=== PATIENT | female | born 1980 | race Caucasian/White ===

== ENCOUNTER 2018-01-17 19:01 | Emergency (ER) | payer MEDICAID ==
[~2018-01-17] VITALS: Ht 160 cm; Wt 72.6 kg
[2018-01-17 20:06] VITALS: Ht 160 cm; Wt 72.6 kg
[2018-01-17 23:25] VITALS: BP 104/66
== END 2018-01-17 23:25 | disposition home or self-care (01) ==
LOC: ED 19:01
DX: H10.31 Unspecified acute conjunctivitis, right eye (principal); H00.012 Hordeolum externum right lower eyelid

== ENCOUNTER 2018-03-16 06:41 | Emergency (ER) | payer OTHER ==
[~2018-03-16] VITALS: Ht 160 cm; Wt 72.6 kg
[2018-03-16 06:48] VITALS: Ht 160 cm; Wt 72.6 kg
[2018-03-16 07:36] VITALS: BP 129/72
== END 2018-03-16 07:36 | disposition home or self-care (01) ==
LOC: ED 06:41
DX: M26.602 Left temporomandibular joint disorder, unspecified (principal)
CPT/HCPCS: J1100; J1885

== ENCOUNTER 2019-03-15 19:50 | Inpatient (IN) | payer OTHER ==
[~2019-03-15] VITALS: Ht 160 cm; Wt 81.9 kg
[2019-03-15 20:02] VITALS: Ht 160 cm; Wt 81.9 kg
--- NOTE | 2019-03-15 20:17 | NUR ---
PT PRESENT TO THE ED WITH C/O LOWER QUADRANT ABD PAIN THAT BEGAN TODAY AT 4 AM. PT STS SHE HAD A 4 WEEKS AGO. HER NURSE PRACTITIONER PRESCRIBED HER KEFLEX FOR POSSIBLE INFECTION D/T HER STERI STRIPS NOT BEING REMOVED. C/O HAVING PERKINS/CHILLS/ABD PAIN. PT DESCRIBES ABD PAIN A COMBINATION OF CRAMPING, ACHING, AND SHOOTING PAIN. STS SHE TOOK IBUPROFEN AND 500 MG OF TYLENOL AT HOME. DENIES ANY N/V
--- NOTE | 2019-03-15 20:41 | NUR ---
DR. BURNETTE AT BEDSIDE FOR MSE
--- NOTE | 2019-03-15 20:55 | NUR ---
MATH AND PHYSICS INSTRUCTOR AT BEDSIDE FOR LAB DRAW
[2019-03-15 21:03] LABS: PLATELET COUNT 327 x10^3mcL (130-400)
[2019-03-15 21:05] LABS: CALCIUM 8.7 mg/dL (8.5-10.1); CARBON DIOXIDE 27.8 mmol/L (21-32); CHLORIDE SERUM 102 mmol/L (98-107); CREATININE SERUM 0.7 mg/dL (0.6-1.0); GFR1 > 60 mL/min; GLUCOSE SERUM 104 mg/dL (74-106); POTASSIUM SERUM 3.3 mmol/L (3.5-5.1); SODIUM SERUM 136 mmol/L (136-145)
[2019-03-15 21:06] LABS: RED CELL DISTRIBUTION WIDTH 15.7 % (11.5-14.5)
[2019-03-15 21:10] LABS: microscopic required? YES; urine erythrocyte 2+ (NEGATIVE)
[2019-03-15 21:19] LABS: ALKALINE PHOSPHATASE 85 U/L (46-116); ALT/SGPT 23 U/L (14-59); AST/SGOT 14 U/L (15-37); BILIRUBIN TOTAL 0.2 mg/dL (0.20-1.00); LIPASE 141 IU/L (73-393); TOTAL PROTEIN, SERUM 7.7 g/dL (6.4-8.2)
[2019-03-15 21:20] LABS: ALBUMIN 3.2 g/dL (3.4-5.0)
[2019-03-15 21:30] LABS: BAND NEUTROPHIL 3 % (0-10); BASOPHIL 0 % (0-2); MONOCYTE 2 % (0-7); SEGMENTED NEUTROPHILS 87 % (37-75); rbc morphology (normal/abnorm) ABNORMAL (NORMAL)
--- NOTE | 2019-03-15 21:34 | NUR ---
DR. 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
--- NOTE | 2019-03-15 21:42 | NUR ---
PT IS SHIVERING/DIAPHORETIC. PT'S ORAL TEMP 103.2. DR. BURNETTE MADE AWARE
--- NOTE | 2019-03-15 21:51 | NUR ---
PT TAKEN TO ULTRASOUND VIA WHEELCHAIR
--- NOTE | 2019-03-15 22:19 | NUR ---
NURSE CONSULTANT AT BEDSIDE FOR BLOOD CULTURE LAB DRAW
--- NOTE | 2019-03-15 22:50 | NUR ---
DR. BURNETTE AT BEDSIDE UPDATING PT ON ADMISSION
--- NOTE | 2019-03-15 23:25 | NUR ---
X-RAY TECH AT BEDSIDE
--- NOTE | 2019-03-15 23:33 | NUR ---
REPORT GIVEN TO CADENCE SINCLAIR FOR CONTINUITY OF CARE. ALL QUESTIONS/CONCERNS ADDRESSED AT THIS TIME
--- NOTE | 2019-03-15 23:45 | NUR ---
PT TRANSFERRED AT THIS TIME ACCOMPANIED BY YESICA SINCLAIR AND EMT. PT IS A/OX4. BREATHING IS E/U ON RA. LAC IV REMAINS IN PLACE WITH NO S/S OF INFILTRATION NOTED. GENTAMICIN ABX TRANSFERED WITH THE PT. NO S/S OF ACUTE DISTRESS NOTED. CADENCE SINCLAIR TO ASSUME CARE.
[2019-03-16] VITALS (8 sets, daily range): BP systolic 97–126; BP diastolic 42–60
--- NOTE | 2019-03-16 00:09 | NUR ---
RECEIVED PT FROM DOTTIE WALTERS. PT A/OX4. DENIES PAIN. DENIES SOB ON RA. IV PATENT. ASSISTED PATIENT WITH SETUP OF BREAST PUMP. ORIENTED PT TO ROOM AND SURROUNDINGS. CALL LIGHT WITHIN REACH, BED IN LOW POSITION. WILL CONTINUE TO MONITOR.
--- NOTE | 2019-03-16 00:09 | NUR ---
RECEIVED PT FROM ED VIA JENNIFER. ORIENTED PT TO ROOM AND SURROUNDINGS. IV NOTED TO JAMAL PATENT AND INTACT. TELE 9 PLACED ON PT READING STA. INSTRUCTED PT ON THE USE OF CALL LIGHT FOR ASSISTANCE. ENDORSED PT TO PRIMARY NURSE CADENCE
[2019-03-16 00:11] LABS: MAGNESIUM 1.5 mg/dL (1.8-2.4)
[2019-03-16 00:14] LABS: CHOLESTEROL/HDL RATIO 3.2; FREE T4 0.68 ng/dL (0.76-1.46); FREE THYROXINE INDEX 1.5 ug/dL (1.4-4.5); T3 TOTAL 1.21 ng/mL
[2019-03-16 00:22] LABS: AMPHETAMINE QUAL UR NONE DETECTED (See below)
[2019-03-16 06:11] LABS: PLATELET COUNT 284 x10^3mcL (130-400)
[2019-03-16 06:35] LABS: BASOPHIL % 0 % (0-2); RED CELL DISTRIBUTION WIDTH 15.4 % (11.5-14.5)
[2019-03-16 06:42] LABS: CARBON DIOXIDE 23.2 mmol/L (21-32); CHLORIDE SERUM 106 mmol/L (98-107); CREATININE SERUM 0.6 mg/dL (0.6-1.0); GFR1 > 60 mL/min; GLUCOSE SERUM 109 mg/dL (74-106); MAGNESIUM 2.3 mg/dL (1.8-2.4); PHOSPHOROUS 1.8 mg/dL (2.5-4.9); POTASSIUM SERUM 3.5 mmol/L (3.5-5.1); SODIUM SERUM 140 mmol/L (136-145)
--- NOTE | 2019-03-16 07:08 | NUR ---
RECEIVED REPORT FROM CADENCE SINCLAIR. PT RESTING COMFORTABLY IN BED. IV TO RAC IS PATENT AND INFSING NS @ 120 ML/HR. NO REDNESS OR PAIN. TELE # [address] PT DENIES CHEST PAIN. PT ON ROOM AIR. NO C/O SOB AND NO DISTRESS NOTED. ALL QUESTIONS AND CONCERNS ADDRESSED.
--- NOTE | 2019-03-16 07:48 | NUR ---
DR ALTMAN IN TO SEE AND ASSESS PATIENT. DISCUSSED HISTORY OF PRESENT ILLNESS, DATE OF , AND FOLLOW UP WITH HIM OUTPATIENT UPON DISCHARGE. DR ALTMAN ORDERED TO ADD AMPCILLIN TO GENTAMYCIN AND CLINDAMYCIN AND RECHECK CBC TONIGHT AT 1800. POSSIBLE DISCHARGE TOMORROW. PT VERBALIZED UNDERSTANDING AND ALL QUESTIONS AND CONCERNS WERE ADDRESSED.
--- NOTE | 2019-03-16 09:09 | NUR ---
EVALUATOR TRANSFER STUDENTS NOTIFIED OF PATIENT TEMP 101.3 ORAL TYLENOL WAS GIVEN AT 5:36 A AND WAS EFFECTIVE PER NOC RN. DR LOVE PAGED FOR ALTERNATE MEDICATION. COOLING MEASURES APPLIED.
--- NOTE | 2019-03-16 10:06 | NUR ---
ROUNDS: DR DEXTER, RESIDENTS, PRIMARY RN, DIRECTOR OF REGULATORY AFFAIRS, AND AT BEDSIDE. DISCUSSED PLAN TO CONTINUE ANTIBIOTICS AND MONITOR LABS, CONTROL TEMP. WHEN PATIENT REMAINS FEVER FREE FOR 24 HOURS SHE WILL DISCHARGE HOME AND FOLLOW UP OUTPATIENT WITH OBGYN. PT AND VERBALIZED UNDERSTANDING AND HAD NO QUESTIONS.
--- NOTE | 2019-03-16 11:30 | NUR ---
RECEIVED CALL FROM AR[facility]IN IN [employer] ABOUT LACTIC ACID BEING RECHECKED BEFORE 12:39. DR LOVE ORDERED LACTIC ACID FOR 11:28 TODAY
--- NOTE | 2019-03-16 11:51 | NUR ---
RECEIVED CALL FROM LAB TO COMFIRM LACTIC ACID REDRAW. LACTIC ACID WAS 1.1 REDRAW CONFIRMED.
--- NOTE | 2019-03-16 12:03 | NUR ---
LACTIC ACID DRAWN NOW. AWAITING RESULTS.
--- NOTE | 2019-03-16 13:26 | NUR ---
IN TO ADMINISTER TORADOL FOR TEMP 103.[address] LOVE OF BP 101/42 DR LOVE ALSO ORDERED TO INCREASE FLUIDS TO 150 ML/HR.
--- NOTE | 2019-03-16 14:29 | NUR ---
PT TEMP 99.3 TORADOL EFFECTIVE. PT BP RECHECKED 87/[address] LOVE PAGED TO NOTIFY. PT ASYMPTOMATIC. DR LOVE ORDERED 1L BOLUS.
--- NOTE | 2019-03-16 16:54 | NUR ---
BOLUS COMPLETE PT BP RECHECKED AND IS 105/57 MAP 73. TEMP ALSO CHECKED AND IS 99.[address] LOVE.
--- NOTE | 2019-03-16 17:23 | NUR ---
PT C/O ANXIETY BUT REPORTS SHE WOULD LIKE TO TRY OTHER OPTIONS BESIDES MEDICATION SHE IS . WILL MONITOR. PT GOING FOR A WALK THROUGH THE [facility].
--- NOTE | 2019-03-16 19:39 | NUR ---
REPORT GIVEN TO EARL SINCLAIR. PT RESTING COMFORTABLY IN BED. ALL NEEDS MET. ALL QUESTIONS AND CONCERNS ADDRESSED. ALL CARES ENDORSED.
--- NOTE | 2019-03-16 19:39 | NUR ---
RECEIVED PATIENT AMBULATING STARR THE HALLWAY WITH FAIR STEADY GAIT. SKIN WARM AND DRY TOTOUCH, RESPIRATION EVEN AND UBNLABORED. DENIES ANY PAIN/DISCOMFORT AT THIS PEACE. IVF NS AT 150ML/HR INFUSING VIA PERIPHERALLINE AT THE [facility] TOLERATING WELL. INSTRUCTEDPATIENT TO USE CALL LIGTH TO COMMUNICATE NEEDS. BED IN LOWEST POSITION.
--- NOTE | 2019-03-16 20:30 | NUR ---
BLOOD CS RESULT[AGE GATE TO DR ZAMBRANO FRAM NEGATIVE RODS PWCandis AM RN, CONTINUES ON ATB IVPB ORDERED. NO ADVERSE REACTION NOTED FROM ATB THERAPY.
--- NOTE | 2019-03-16 21:00 | NUR ---
GENTAMYCIN PEAK DRAWN BY TYPING BOOKKEEPER, TOLERATED PROCEDURE WELL.
[2019-03-16 21:33] LABS: BASOPHIL % 0.1 % (0-2); PLATELET COUNT 228 x10^3mcL (130-400)
--- NOTE | 2019-03-16 21:50 | NUR ---
QVQR=449.9F. COOLING MEASURES RENDERED. TYLENOL 650MG PO PRN MEDICATION FOR FEVER. ENCOURAGED ORAL FLUIDS. WILL CONTINUE TO MONITOR,
--- NOTE | 2019-03-16 23:00 | NUR ---
TEMP RECHECK 99.3, CONTINUES ON COOLING MEASURES. DENIES ANY HEADACHE /DISCOMFORT. CONTINUES ON ATB IVPB ORDERED. NO ADVERSE REACTION NOTED. FLUIDS TOLERATING WELL.
[2019-03-17 04:55] VITALS: BP 100/50
[2019-03-17 06:14] LABS: BASOPHIL % 0.1 % (0-2); PLATELET COUNT 238 x10^3mcL (130-400)
--- NOTE | 2019-03-17 06:26 | NUR ---
TYELNOL 650MGPO GIVEN FOR TEMP 100.6F AT 0515. CONTINUES ON COOLING MEASURES. DR DAVIS AWARE OF PT'S INTERMITTENT FEVER, CONTINUE TO GIVEN ATB ORDERED AND TYRLENOL PRN. LATEST TEMP=99.9F. KEPT CLEAN AND DRY. ALL NEEDS ATTEDED. HAD TWICE SOFT BOWEL MOVEMENT THIS SHIFT. KEPT CLEAN AND DRY. ALL NEEDS ATTENDED.
[2019-03-17 06:41] LABS: CALCIUM 8.5 mg/dL (8.5-10.1); CARBON DIOXIDE 24.2 mmol/L (21-32); CHLORIDE SERUM 108 mmol/L (98-107); CREATININE SERUM 0.6 mg/dL (0.6-1.0); GFR1 > 60 mL/min; GLUCOSE SERUM 101 mg/dL (74-106); POTASSIUM SERUM 3.1 mmol/L (3.5-5.1); SODIUM SERUM 142 mmol/L (136-145)
--- NOTE | 2019-03-17 07:14 | NUR ---
RECEIVED REPORT FROM EARL SINCLAIR. PT RESTING COMFORTABLY IN BED. IV TO RAC IS PATENT AND INFUSING NS @ 150 ML/HR. NO REDNESS OR PAIN. TELE # [address] PT DENIES CHEST PAIN. PT ON ROOM AIR. NO C/O SOB AND NO DISTRESS NOTED. ALL QUESTIONS AND CONCERNS ADDRESSED.
[2019-03-17 08:29] VITALS: BP 96/55
--- NOTE | 2019-03-17 09:20 | NUR ---
IN TO SEE PATIENT AND INSERT NEW IV. IV TO RAC IS LEAKING. NEW IV TO LFA. ANTIBIOTICS ADMINISTERED NOW. ALSO DISCUSSED WITH PATIENT THE POSSIBILITY OF ANTIBIOTICS PASSING THROUGH BREAST MILK. PT REQUESTED THAT ALL STORED MILK IN FREEZER BE THROWN OUT.
--- NOTE | 2019-03-17 09:45 | NUR ---
ROUNDS: DR DEXTER, RESIDENTS, PRIMARY RN AND SPEECH THERAPIST AT BEDSIDE. PLAN IS TO CONTINUE TREATMENT WITH ANTIBIOTICS AND MONITOR CLOSELY. POSSIBLE DISCHARGE TOMORROW OR TUESDAY. PT VERBALIZED UNDERSTANDING AND ALL QUESTIONS AND CONCERNS WERE ADDRESSED. ALSO NOTIFIED OF POTASSIUM 3.1
--- NOTE | 2019-03-17 12:03 | NUR ---
IN TO SEE PATIENT AND ADMINISTER MEDICATION (SEE eMAR).
[2019-03-17 12:39] VITALS: BP 101/58
--- NOTE | 2019-03-17 13:08 | NUR ---
PT C/O ABD PAIN 03/05. TORADOL ADMINISTERED. WILL REASSESS.
--- NOTE | 2019-03-17 16:57 | NUR ---
CALLED LAB TO DELAY GENTAMYCIN PEAK FOR 30 MINUTES. GENTAMYCIN WAS STARTED 30 MINUTES LATE.
[2019-03-17 17:14] VITALS: BP 97/59
--- NOTE | 2019-03-17 18:10 | NUR ---
SPOKE WITH DR BELTRE. DR STATED THAT HE WAS UNABLE TO PLACE ORDERS FOR C. DIFF AND STOOL CULTURE. ASKED ME TO PLACE THEM. ALSO REQUESTED TO HAVE RESIDENT CALL HIM DIRECTLY FOR FURTHER INSTRUCTIONS. WILL PAGE DR BALBUENA.
--- NOTE | 2019-03-17 18:14 | NUR ---
DR BALBUENA PAGED. IT IS CURRENTLY SHIFT CHANGE, WILL ALSO NOTIFY NIGHT RESIDENT. AWAITING NIGHT RESIDENT TO NOTIFY OF DR BELTRE'S REQUEST TO SPEAK WITH THEM.
--- NOTE | 2019-03-17 18:25 | NUR ---
INFORMED PATIENT THAT A STOOL SAMPLE IS REQUIRED. PROVIDED PATIENT WITH STO BOWL AND INSTRUCTED PATIENT TO NOTIFY ONCE SAMPLE IS AVAILABLE. PT VERBALIZED UNDERSTANDING.
--- NOTE | 2019-03-17 19:21 | NUR ---
REPORT GIVEN TO EARL SINCLAIR. PT RESTING COMFORTABLY IN BED. ALL NEEDS MET. PT REMAINED FEVER FREE FOR ENTIRE SHIFT. NEW IV TO LFA IS PATENT AND INFUSING NS @ 150 ML/HR. NO REDNESS OR PAIN. ENDORSED TO EARL THAT DR BELTRE CHANGED TWO OF PATIENTS ANTIBIOTICS, ORDERED STOOL CULTURE AND C. DIFF SAMPLE BE OBTAINED. PT HAS BEEN NOTIFIED. ALSO ENDORSED TO EARL THAT DR BELTRE WOULD LIKE TO SPEAK TO THE RESIDENT FOR FURTHER INSTRUCTIONS AND THAT DR BALBUENA WAS PAGED WITH NO SUCCESS. EARL TO NOTIFY NIGHT RESIDENT. ALL QUESTIONS AND CONCERNS ADDRESSED.
--- NOTE | 2019-03-17 19:55 | NUR ---
AWAKE AND VERBALLY RESPONISVE. DENEIS ANY PAIN/DISCOMFORT AT THIS TIME. RESPIRATION EVEN AND UNLABORED. SKIN WARM AND DRY TO TOUCH WITH DRY SCAB AT THE SURGICAL INCISSION S/P S-SECTION 4WEEKS AGO. IV ACCESS AT THE LFA INTACT AND PATNET WITH IVF OF NS AT 150ML/HR TOLERATING WELL. WILL CONTINUE TO MONITOR.
--- NOTE | 2019-03-17 21:00 | NUR ---
SZZF=256F. COOLING MEASURES RENDERED. ORAL FLUIDS TOLERATTING WELL. NO S/S OF ASPIRATION NOTEE,
[2019-03-17 21:20] VITALS: BP 105/57
--- NOTE | 2019-03-18 01:45 | NUR ---
STOOL COLLECTED FOR STOOL C-DIFF AND STOOL CS AND SENT TO LAB. CONTINUES ON ATB IVPB FOR EMPIRIC MANAGEMENT OF ENDOMETRITIS. NO ADVERSE REACTION NOTED.
[2019-03-18 05:00] VITALS: BP 106/60
--- NOTE | 2019-03-18 06:04 | NUR ---
DUE MEDICATIONS GIVEN AND WELL TOLERATED. NO ADVERSE REACTION NOTED FROM ATB THERAPY. ALL NEEDS ATTEDNED.
[2019-03-18 06:23] VITALS: BP 102/60
--- NOTE | 2019-03-18 07:25 | NUR ---
RECEIVED PT FROM SHIFT NURSE ASLEEP BUT AROUSABLE. NO ACUTE DISTRESS NOTED. IV INTACT AND PATENT. BED IN LOW POSITION. CALL LIGHT WITHIN REACH. WILL CONTINUE TO MONITOR.
[2019-03-18 07:28] LABS: BASOPHIL % 0.2 % (0-2); PLATELET COUNT 230 x10^3mcL (130-400); RED CELL DISTRIBUTION WIDTH 16.1 % (11.5-14.5)
[2019-03-18 07:46] LABS: CALCIUM 8.2 mg/dL (8.5-10.1); CARBON DIOXIDE 25.9 mmol/L (21-32); CHLORIDE SERUM 108 mmol/L (98-107); CREATININE SERUM 0.4 mg/dL (0.6-1.0); GFR1 > 60 mL/min; GLUCOSE SERUM 103 mg/dL (74-106); POTASSIUM SERUM 3.5 mmol/L (3.5-5.1); SODIUM SERUM 143 mmol/L (136-145)
[2019-03-18 09:49] VITALS: BP 106/55
--- NOTE | 2019-03-18 10:37 | NUR ---
PT RESTING IN BED TALKING ON THE PHONE. NO C/O OF PAIN. IV INTACT AND PATENT. CALL LIGHT WITHIN REACH. WILL CONTINUE TO MONITOR.
--- NOTE | 2019-03-18 12:41 | NUR ---
PT SITTING ON BED TALKING WITH FAMILY MEMBER AT BEDSIDE. NO C/O OF PAIN AT THIS TIME. IV INTACT AND PATENT. CALL LIGHT WITHIN REACH. WILL CONTINUE TO MONITOR.
[2019-03-18 13:16] VITALS: BP 105/60
--- NOTE | 2019-03-18 14:50 | NUR ---
PT SITTING ON BED RESTING. FAMILY MEMBER AT BEDSIDE. CALL LIGHT WITHIN REACH. WILL CONTINUE TO MONITOR.
--- NOTE | 2019-03-18 15:00 | NUR ---
RECEIVED CALL FROM LAB BLOOX CULTURE RESULTS GRAM + SALMONELLA SPECIES. MADE DR. DEXTER AWARE. NO NEW ORDERDS GIVEN
[2019-03-18 17:36] VITALS: BP 116/59
--- NOTE | 2019-03-18 18:59 | NUR ---
PT SITTING UP IN BED TALKING WITH FAMILY MEMBER. NO ACUTE DISTRESS NOTED. IV INTACT AND PATENT. CALL LIGHT WITHIN REACH. WILL BE ENDORSED.
--- NOTE | 2019-03-18 19:55 | NUR ---
RECEIVED AWAKE AMBULATING IN THE ROOM WITH FAIR STEADY GAIT. PT AT BEDSIDE VERY SUPPORTIVE OF PATIENT'S CURRENT PLAN OF CARE. SKIN WARM AND DRY TO TOUCH WITH HEALED ABDOMINAL SURGICAL INCISSION S/P 4WEEKS AGO, DENIES ANY PAIN.DISCOMFORT AT THIS TIME. CALL LIGHT WITHIN REACH.
[2019-03-18 21:11] VITALS: BP 103/53
--- NOTE | 2019-03-19 00:33 | NUR ---
DR BELTRE CAME AND EXAMINED PT, BLOOD CULTURE SHOWS SOME SALMONELLA SPECIES, MD ORDERED TO PUT ON CONTACT ISOLATION, AND DISCONTINUE ALL CURRENT ANTIBIOTICS, AND TO START ROCEPHIN IVPB DIALY TO BE GIVEN AT 0900 AM TOMORROW. PHARMACY MADE AWARE.
--- NOTE | 2019-03-19 00:55 | NUR ---
PLACED ON CONTACT ISDLATION. PT MADE AWARE OF NEW CURRENT PLAN OF CARE, PT VERABLIZED UNDERSTANDING.
--- NOTE | 2019-03-19 03:50 | NUR ---
AMBULATED TO BATHROOM FOR PERSONAL NEEDS. FREQUENT HANDWASHING MAINTAINED BEFORE AND AFTER USING BATHROOM.
[2019-03-19 05:49] VITALS: BP 118/57
--- NOTE | 2019-03-19 06:44 | NUR ---
ORAL FLUIDS WELL TAKNE AND TOLERATED. NO C/O OF ABDOMINAL PAIN. ROCE[PIN IV TO BE STARTED TODAY AT 09QQAM ORDERED BY DR BELTRE. PATIENT AWARE OF THE NEW PLAN OF CARE.
--- NOTE | 2019-03-19 07:25 | NUR ---
RECEIVED PT FROM SAM ELLIOTT. PT AA/OX4. DR. MACKAY AT BEDSIDE TALKING TO PT. NO S/S OF ACUTE DISTRESS. DENIES PAIN. NO N/V. NO SOB ON ROOM AIR. NO CHILLS. NO DIZZINESS. NSR ON TELE. HR 61. NO CHEST PAIN. IV WNL TO LFA, NO REDNESS, NO SWELLING, NO INFILTRATION. IV FLUIDS FLOWING. PT CALM/COOPERATIVE. SIDE RAILS UP X2. CONTACT PRECAUTIONS IN PLACE. BED IN LOW POSITION. CALL LIGHT WITHIN REACH. WILL CONTINUE TO MONITOR.
[2019-03-19 08:08] LABS: BASOPHIL % 0.3 % (0-2); PLATELET COUNT 277 x10^3mcL (130-400)
[2019-03-19 08:13] LABS: RED CELL DISTRIBUTION WIDTH 15.6 % (11.5-14.5)
[2019-03-19 08:23] LABS: CALCIUM 8.7 mg/dL (8.5-10.1); CARBON DIOXIDE 27.2 mmol/L (21-32); CHLORIDE SERUM 106 mmol/L (98-107); CREATININE SERUM 0.5 mg/dL (0.6-1.0); GFR1 > 60 mL/min; GLUCOSE SERUM 92 mg/dL (74-106); POTASSIUM SERUM 3.5 mmol/L (3.5-5.1); SODIUM SERUM 142 mmol/L (136-145)
[2019-03-19 09:29] VITALS: BP 100/51
--- NOTE | 2019-03-19 12:45 | NUR ---
PT SITTING IN BED. DENIES ABD. PAIN AT THIS TIME. NO N/V. NO CHILLS. BM X1 LOOSE/GREEN. AMBULATORY WITH FULL ROM, GAIT STEADY. VOIDS FREELY. NO SOB ON ROOM AIR. IV WNL TO LFA, NO REDNESS, NO SWELLING, NO INFILTRATION. PATENT AND FLUSHES WELL. IV FLUIDS FLOWING. BED IN LOW POSITION. CALL LIGHT WITHIN REACH. CONTACT PRECAUTIONS IN PLACE. WILL CONTINUE TO MONITOR.
[2019-03-19 13:18] VITALS: BP 99/56
[2019-03-19] MEDS ORDERED: BACTRIM DS1 TAB PO (15:13)
[2019-03-19 15:52] VITALS: BP 99/56
--- NOTE | 2019-03-19 16:40 | NUR ---
PT BEING DISCHARGED TO HOME. AWAKE, ALERT, ORIENTED X4. NO N/V. NO CHILLS. NO FEVER. DENIES PAIN. NO SOB ON ROOM AIR. NO ABDOMINAL PAIN. NO CHEST PAIN. NO S/S OF ACUTE DISTRESS. DISCHARGE INSTRUCTIONS PROVIDED TO PATIENT, INSTRUCTED TO FOLLOW UP WITH PCP AT UPCOMING APPT. VERBALIZED UNDERSTANDING. BELONGINGS WITH PATIENT. NSR ON TELE, TELE REMOVED. IV REMOVED FROM LAC, CATHETER IN TACT. PRESSURE APPLIED. SITE WNL. NO REDNESS, NO SWELLING, NO INFILTRATION. PRESCRIPTIONS WITH PATIENT.
[2019-03-19 17:49] VITALS: BP 99/60
--- NOTE | 2019-03-19 18:47 | NUR ---
TAKEN TO LOBBY BY DOTTIE RUIZ. PT AWAKE, ALERT, ORIENTED X4. BELONGINGS AND PRESCRIPTION WITH PATIENT. ACCOMPANIED BY . VS STABLE. NO PAIN. NO SOB ON ROOM AIR. AMBULATORY WITH FULL ROM, GAIT STEADY.
== END 2019-03-19 18:43 | disposition home or self-care (01) | DRG 561 ==
LOC: ED 19:50 → DU 23:16
PROVIDERS: Emergency Medicine; Obstetrics & Gynecology; ADMIT General Practice
DX: O85 Puerperal sepsis (principal); E44.0 Moderate protein-calorie malnutrition; O86.12 Endometritis following delivery; A02.0 Salmonella enteritis; E83.42 Hypomagnesemia; E66.9 Obesity, unspecified; O99.63 Diseases of the digestive system complicating the puerperium; E87.6 Hypokalemia; Z96.652 Presence of left artificial knee joint; Z60.2 Problems related to living alone; E78.5 Hyperlipidemia, unspecified; O99.285 Endocrine, nutritional and metabolic diseases complicating the puerperium; O25.3 Malnutrition in the puerperium; O99.215 Obesity complicating the puerperium; Z56.0 Unemployment, unspecified
CPT/HCPCS: 83880; 84439; 87046; 87046-59; 87491; 87591; G0378; J0290; J0696; J1580; J1885; J2185; J3475; J3490; J7030; J7040; Q0092